=== PATIENT | female | born 1990 | race Two or more races ===

== ENCOUNTER 2020-06-04 14:00 | Inpatient (IN) | payer OTHER ==
[~2020-06-04] VITALS: Ht 157.5 cm; Wt 71.2 kg
[2020-06-19] MEDS ORDERED: SYNTHROID88 MCG PO (05:24)
[2020-06-19] MEDS ORDERED: PRENATAL CAPLE1 EAC1 PO (05:24)
== END 2020-06-21 13:26 | disposition home or self-care (01) | DRG 768 ==
LOC: LDR 06-19 05:19 → SURG-SUITE 06-19 18:15 → LDR 06-23 14:00
PROVIDERS: ADMIT Obstetrics & Gynecology Maternal & Fetal Medicine; ATTEND Obstetrics & Gynecology Maternal & Fetal Medicine
PROC: 10E0XZZ Delivery of Products of Conception, External Approach (ICD-10-PCS; principal; 2020-06-19)
PROC: 0DQR0ZZ Repair Anal Sphincter, Open Approach (ICD-10-PCS; 2020-06-19)
PROC: 0W8NXZZ Division of Female Perineum, External Approach (ICD-10-PCS; 2020-06-19)
PROC: 10907ZC Drainage of Amniotic Fluid, Therapeutic from Products of Conception, Via Natural or Artificial Opening (ICD-10-PCS; 2020-06-19)
PROC: 3E033VJ Introduction of Other Hormone into Peripheral Vein, Percutaneous Approach (ICD-10-PCS; 2020-06-19)
PROC: 4A1HXFZ Monitoring of Products of Conception, Cardiac Rhythm, External Approach (ICD-10-PCS; 2020-06-19)
DX: O70.20 Third degree perineal laceration during delivery, unspecified (principal); O99.284 Endocrine, nutritional and metabolic diseases complicating childbirth; E03.9 Hypothyroidism, unspecified; Z37.0 Single live birth; Z3A.39 39 weeks gestation of pregnancy; Z20.822 Contact with and (suspected) exposure to COVID-19

== ENCOUNTER 2020-06-18 07:43 | Outpatient (CLI) | payer OTHER ==
[2020-06-19] MEDS ORDERED: PRENATAL CAPLE1 EAC1 PO (05:24)
[2020-06-19] MEDS ORDERED: SYNTHROID88 MCG PO (05:24)
== END 2020-06-18 08:55 | disposition home or self-care (01) ==
LOC: NST 07:43
PROVIDERS: ATTEND Obstetrics & Gynecology Maternal & Fetal Medicine
DX: Z34.83 Encounter for supervision of other normal pregnancy, third trimester (principal)